=== PATIENT | male | born 1940 | race Caucasian/White ===

== ENCOUNTER 2019-01-03 13:16 | Inpatient (IN) ==
[2019-01-03] MEDS ORDERED: SODIUM CHLORIDE 0.9% 1,000 ML IV STA (13:33)
[2019-01-03] MEDS ORDERED: NOREPINEPHRINE 4 MG/4 ML VIAL IV ONE (13:39)
[2019-01-03] MEDS ORDERED: fentaNYL 100 MCG/2 ML VIAL IV STA (15:04)
[2019-01-03] MEDS: LACTATED RINGERS 1,000 ML IV SCH (15:20)
[2019-01-03] MEDS ORDERED: PROMETHAZINE 25 MG/1 ML VIAL IM PRN (15:27)
[2019-01-03] MEDS: metroNIDAZOLE INJ 500 MG in PREMIX 1 EACH IV SCH ×2 (16:17→20:35)
[2019-01-03] MEDS: ceFAZolin 1,000 MG in SYRINGE 1 EACH IV SCH ×2 (16:19→20:42)
[2019-01-03] MEDS: MORPHINE 4 MG/1 ML VIAL IV PRN (16:20)
[2019-01-03] MEDS: POTASSIUM CHLORIDE RIDER 10 MEQ in PREMIX 1 EACH IV SCH ×3 (17:38→20:35)
[2019-01-03] MEDS: VANCOMYCIN 50 MG/ML 60 ML/BOTTLE PO SCH (17:39)
[2019-01-03] MEDS: VANCOMYCIN 500 MG VIAL RECTAL SCH (19:15)
[2019-01-03] MEDS ORDERED: SODIUM CHLORIDE 0.9% 1,000 ML IV ONE (20:48)
[2019-01-03] MEDS: NOREPINEPHRINE 8 MG in SODIUM CHLORIDE 0.9% 242 ML IV PRN (22:57)
[2019-01-04 00:08] LABS: ABG Base Excess -6.6 MMOL/L (-2.5-2.5); ABG HCO3 19.1 MMOL/L (20-26); ABG Oxygen Saturation 98.6 % (95-100); ABG PCO2 30.8 MM HG (35-48); ABG PH 7.366 (7.35-7.45); ABG TCO2 15.5 MMOL/L (23-27); Allen Test Positive
[2019-01-04 00:26] LABS: Albumin 2.3 G/DL (3.4-5.0); Bilirubin,Total 1.2 MG/DL (0.2-1.0); Calcium 7.5 MG/DL (8.5-10.1); Osmolality,Calculated 302.4 MOS/KG (273-304); Total Protein 4.5 G/DL (6.4-8.3)
[2019-01-04 00:40] LABS: Basophils % 0.1 % (0.0-0.8); Hematocrit 39.1 VOL% (42.0-52.0); Hemoglobin 12.9 GM/DL (14.0-18.0); Immature Granulocytes % 1.9 %; Immature Granulocytes Absolute 0.36 #; Lymphocytes # 0.3 10*3/uL (1.4-4.0); Lymphocytes % 1.6 % (21.2-54.2); Mean Corpuscular Volume 89.9 FL (87-102); Mean Platelet Volume 12.7 FL (9.6-12.0); Monocytes % 8.2 % (1.7-12.7); Neutrophils % 88.2 % (38.7-73.9); Platelet Count 133 T/CUMM (130-400); Red Blood Count 4.35 MC/CUMM (3.8-5.5); Red Cell Distribution Width 13.9 % (9.3-17.3); White Blood Count 18.9 T/CUMM (4-12)
[2019-01-04] MEDS: VANCOMYCIN 50 MG/ML 60 ML/BOTTLE PO SCH ×4 (00:46→18:59)
[2019-01-04] MEDS: VANCOMYCIN 500 MG VIAL RECTAL SCH ×3 (00:46→13:58)
[2019-01-04 01:08] LABS: Band Neutrophils 8 % (0-10); Lymphocytes 2 % (20-55); Metamyelocytes 10 %; Myelocytes 8 %; Segmented Neutrophils 63 % (50-85); Total Cells Counted 100
[2019-01-04 01:10] LABS: Ovalocytes 1+; Platelet Estimate Normal
[2019-01-04 01:11] LABS: CKMB % 2.1 %
[2019-01-04 01:23] LABS: Troponin I 2.46 NG/ML (0.00-0.045)
[2019-01-04] MEDS ORDERED: SODIUM CHLORIDE 0.9% 1,000 ML IV ONE (01:59)
[2019-01-04] MEDS: POTASSIUM CHLORIDE RIDER 10 MEQ in PREMIX 1 EACH IV PRN (02:14)
[2019-01-04] MEDS: ceFAZolin 1,000 MG in SYRINGE 1 EACH IV SCH ×4 (03:20→21:01)
[2019-01-04] MEDS: metroNIDAZOLE INJ 500 MG in PREMIX 1 EACH IV SCH ×4 (03:27→21:02)
[2019-01-04 04:47] LABS: Basophils # 0.1 10*3/uL (0.0-0.2); Basophils % 0.2 % (0.0-0.8); Hematocrit 39.6 VOL% (42.0-52.0); Hemoglobin 12.9 GM/DL (14.0-18.0); Immature Granulocytes % 1.4 %; Immature Granulocytes Absolute 0.35 #; Lymphocytes # 0.4 10*3/uL (1.4-4.0); Lymphocytes % 1.5 % (21.2-54.2); Mean Corpuscular HGB Conc 32.6 GM/DL (32-36); Mean Corpuscular Volume 89.4 FL (87-102); Mean Platelet Volume 12.3 FL (9.6-12.0); Monocytes % 8.4 % (1.7-12.7); Neutrophils % 88.5 % (38.7-73.9); Platelet Count 153 T/CUMM (130-400); Red Blood Count 4.43 MC/CUMM (3.8-5.5); Red Cell Distribution Width 14.1 % (9.3-17.3); White Blood Count 24.4 T/CUMM (4-12)
[2019-01-04 05:21] LABS: Alanine Aminotransferase 36 U/L (16-61); Albumin 2.4 G/DL (3.4-5.0); Alkaline Phosphatase 56 U/L (45-117); Aspartate Amino Transferase 79 U/L (0-37); Blood Urea Nitrogen 44 MG/DL (7-18); Calcium 7.4 MG/DL (8.5-10.1); Estimated Glom Filtration Rate 29 ML/MIN; Glucose 95 MG/DL (74-106); Osmolality,Calculated 300.6 MOS/KG (273-304); Total Protein 4.9 G/DL (6.4-8.3)
[2019-01-04 05:27] LABS: Band Neutrophils 4 % (0-10); Lymphocytes 6 % (20-55); Metamyelocytes 4 %; Myelocytes 5 %; Segmented Neutrophils 67 % (50-85); Total Cells Counted 100
[2019-01-04 05:28] LABS: Hypochromasia 1+; Platelet Estimate Adequate
[2019-01-04] MEDS: LACTATED RINGERS 1,000 ML IV SCH ×3 (06:16→17:57)
[2019-01-04] MEDS: NOREPINEPHRINE 8 MG in SODIUM CHLORIDE 0.9% 242 ML IV PRN (06:17)
[2019-01-05] MEDS: VANCOMYCIN 50 MG/ML 60 ML/BOTTLE PO SCH ×4 (00:04→18:32)
[2019-01-05] MEDS: LACTATED RINGERS 1,000 ML IV SCH ×2 (01:10→12:28)
[2019-01-05] MEDS: ceFAZolin 1,000 MG in SYRINGE 1 EACH IV SCH ×4 (02:39→21:39)
[2019-01-05] MEDS: metroNIDAZOLE INJ 500 MG in PREMIX 1 EACH IV SCH ×4 (02:39→21:39)
[2019-01-05 04:53] LABS: Basophils # 0.1 10*3/uL (0.0-0.2); Basophils % 0.4 % (0.0-0.8); Hemoglobin 12.2 GM/DL (14.0-18.0); Immature Granulocytes % 2.1 %; Immature Granulocytes Absolute 0.35 #; Lymphocytes # 0.3 10*3/uL (1.4-4.0); Lymphocytes % 1.6 % (21.2-54.2); Mean Corpuscular Volume 87.9 FL (87-102); Mean Platelet Volume 12.2 FL (9.6-12.0); Monocytes % 5.8 % (1.7-12.7); Neutrophils % 90.1 % (38.7-73.9); Platelet Count 120 T/CUMM (130-400); Red Blood Count 4.21 MC/CUMM (3.8-5.5); Red Cell Distribution Width 14.4 % (9.3-17.3); White Blood Count 16.6 T/CUMM (4-12)
[2019-01-05 05:40] LABS: Band Neutrophils 20 % (0-10); Lymphocytes 2 % (20-55); Metamyelocytes 17 %; Myelocytes 1 %; Ovalocytes 1+; Platelet Estimate Decreased; Segmented Neutrophils 55 % (50-85); Total Cells Counted 100
[2019-01-05 05:42] LABS: Calcium 7.7 MG/DL (8.5-10.1); Osmolality,Calculated 293.4 MOS/KG (273-304)
[2019-01-05] MEDS: POTASSIUM CHLORIDE RIDER 10 MEQ in PREMIX 1 EACH IV PRN ×2 (06:24→08:21)
[2019-01-05] MEDS ORDERED: LACTATED RINGERS 500 ML IV ONE (06:49)
[2019-01-05 11:49] LABS: Amorphous Crystals,Urine Few /HPF (Few); Apearance,Urine Slightly Hazy (Clear); Bacteria,Urine Occasional /HPF (Few); Bilirubin,Urine Negative (Negative); Blood, Urine Moderate mg/dL (Negative); Glucose,Urine (UA) Negative (Negative); Ketones,Urine Negative (Negative); Mucus,Urine Occasional /LPF (Occasional); Nitrite,Urine Negative (Negative); Protein,Urine Negative; RBC,Urine 16 /HPF (0-4); Squamous Epithelial Cell,Urine Occasional /HPF (0-10); Urine Color Yellow (Yellow); Urine Specific Gravity 1.018 (1.001-1.035); Urine Urobilinogen < 2.0 EU/DL (0.2-1.0); WBC,Urine 21 /HPF (0-6)
[2019-01-05] MEDS: DEXTROSE 5% LACTATED RINGERS 1,000 ML IV SCH ×2 (12:28→22:34)
[2019-01-05] MEDS: ONDANSETRON 4 MG/2 ML VIAL IV PRN (18:01)
[2019-01-05] MEDS: MORPHINE 4 MG/1 ML VIAL IV PRN (21:40)
[2019-01-06] MEDS: VANCOMYCIN 50 MG/ML 60 ML/BOTTLE PO SCH ×4 (00:58→18:35)
[2019-01-06] MEDS: ceFAZolin 1,000 MG in SYRINGE 1 EACH IV SCH (03:21)
[2019-01-06] MEDS: metroNIDAZOLE INJ 500 MG in PREMIX 1 EACH IV SCH ×4 (03:21→20:58)
[2019-01-06] MEDS: MORPHINE 4 MG/1 ML VIAL IV PRN ×2 (03:51→08:55)
[2019-01-06 05:00] LABS: Basophils # 0.1 10*3/uL (0.0-0.2); Basophils % 0.6 % (0.0-0.8); Hemoglobin 12.8 GM/DL (14.0-18.0); Immature Granulocytes % 0.4 %; Lymphocytes # 0.3 10*3/uL (1.4-4.0); Lymphocytes % 1.1 % (21.2-54.2); Mean Corpuscular HGB Conc 33.7 GM/DL (32-36); Mean Corpuscular Volume 86.4 FL (87-102); Mean Platelet Volume 11.6 FL (9.6-12.0); Monocytes % 3.6 % (1.7-12.7); Neutrophils % 94.3 % (38.7-73.9); Platelet Count 123 T/CUMM (130-400); Red Cell Distribution Width 14.2 % (9.3-17.3); White Blood Count 23.5 T/CUMM (4-12)
[2019-01-06 05:21] LABS: Bilirubin,Total 0.9 MG/DL (0.2-1.0); Calcium 8.3 MG/DL (8.5-10.1); Osmolality,Calculated 299.8 MOS/KG (273-304); Total Protein 5.3 G/DL (6.4-8.3)
[2019-01-06 05:29] LABS: Band Neutrophils 2 % (0-10); Hypochromasia 1+; Lymphocytes 1 % (20-55); Metamyelocytes 1 %; Microcytosis Slight; Myelocytes 1 %; Ovalocytes Slight; Segmented Neutrophils 85 % (50-85); Target Cells Slight; Total Cells Counted 100
[2019-01-06 05:30] LABS: Platelet Estimate Adequate
[2019-01-06] MEDS: PIPERACILLIN/TAZOBACTAM 3,375 MG in SODIUM CHLORIDE 0.9% 100 ML IV SCH ×2 (08:56→17:00)
[2019-01-06] MEDS: DEXTROSE 5% LACTATED RINGERS 1,000 ML IV SCH ×2 (08:56→19:00)
[2019-01-06] MEDS: HYDROmorphone 2 MG/1 ML VIAL IV PRN (10:15)
[2019-01-06] MEDS: valACYclovir 500 MG TABLET PO SCH (11:27)
[2019-01-06] MEDS: ASPIRIN EC 81 MG TABLET PO SCH (11:27)
[2019-01-06] MEDS: ONDANSETRON 4 MG/2 ML VIAL IV PRN (11:38)
[2019-01-06] MEDS: FAMOTIDINE 20 MG/2 ML VIAL IV SCH (13:29)
[2019-01-06] MEDS: ENOXAPARIN 40 MG/0.4 ML SYRINGE SUBCUT SCH (13:32)
[2019-01-06] MEDS ORDERED: BISACODYL 10 MG SUPP RECTAL ONE (15:28)
[2019-01-06] MEDS ORDERED: ATORVASTATIN 40 MG TABLET PO SCH (21:00)
[2019-01-07] MEDS: FAMOTIDINE 20 MG/2 ML VIAL IV SCH ×2 (00:45→13:44)
[2019-01-07] MEDS: VANCOMYCIN 50 MG/ML 60 ML/BOTTLE PO SCH ×2 (00:45→07:19)
[2019-01-07] MEDS: PIPERACILLIN/TAZOBACTAM 3,375 MG in SODIUM CHLORIDE 0.9% 100 ML IV SCH ×3 (00:50→18:04)
[2019-01-07] MEDS: HYDROmorphone 2 MG/1 ML VIAL IV PRN ×2 (01:15→20:39)
[2019-01-07 06:36] LABS: Basophils # 0.1 10*3/uL (0.0-0.2); Basophils % 0.4 % (0.0-0.8); Eosinophils # 0.1 10*3/uL (0.0-0.87); Eosinophils % 0.3 % (0.00-10.9); Hematocrit 38.3 VOL% (42.0-52.0); Hemoglobin 12.3 GM/DL (14.0-18.0); Immature Granulocytes % 1.8 %; Immature Granulocytes Absolute 0.31 #; Lymphocytes # 0.5 10*3/uL (1.4-4.0); Lymphocytes % 2.9 % (21.2-54.2); Mean Corpuscular HGB Conc 32.1 GM/DL (32-36); Mean Corpuscular Volume 88.5 FL (87-102); Mean Platelet Volume 11.7 FL (9.6-12.0); Neutrophils % 86.6 % (38.7-73.9); Platelet Count 117 T/CUMM (130-400); Red Blood Count 4.33 MC/CUMM (3.8-5.5); Red Cell Distribution Width 14.7 % (9.3-17.3); White Blood Count 17.3 T/CUMM (4-12)
[2019-01-07 06:57] LABS: Osmolality,Calculated 294.1 MOS/KG (273-304)
[2019-01-07 07:03] LABS: Band Neutrophils 5 % (0-10); Hypochromasia 1+; Lymphocytes 9 % (20-55); Microcytosis 1+; Segmented Neutrophils 82 % (50-85); Total Cells Counted 100
[2019-01-07 07:04] LABS: Ovalocytes Slight; Platelet Estimate Adequate
[2019-01-07] MEDS: metroNIDAZOLE INJ 500 MG in PREMIX 1 EACH IV SCH ×4 (07:19→20:38)
[2019-01-07] MEDS: DEXTROSE 5% LACTATED RINGERS 1,000 ML IV SCH (07:20)
[2019-01-07] MEDS: ONDANSETRON 4 MG/2 ML VIAL IV PRN (09:22)
[2019-01-07] MEDS: ASPIRIN EC 81 MG TABLET PO SCH (09:22)
[2019-01-07] MEDS: valACYclovir 500 MG TABLET PO SCH ×2 (09:22→09:39)
[2019-01-07] MEDS: ENOXAPARIN 40 MG/0.4 ML SYRINGE SUBCUT SCH (13:45)
[2019-01-08] MEDS: FAMOTIDINE 20 MG/2 ML VIAL IV SCH ×2 (00:47→13:28)
[2019-01-08] MEDS: PIPERACILLIN/TAZOBACTAM 3,375 MG in SODIUM CHLORIDE 0.9% 100 ML IV SCH ×3 (00:48→16:47)
[2019-01-08] MEDS: metroNIDAZOLE INJ 500 MG in PREMIX 1 EACH IV SCH ×4 (04:05→21:17)
[2019-01-08 05:28] LABS: Basophils % 0.3 % (0.0-0.8); Eosinophils # 0.1 10*3/uL (0.0-0.87); Eosinophils % 1.2 % (0.00-10.9); Hematocrit 36.1 VOL% (42.0-52.0); Hemoglobin 11.7 GM/DL (14.0-18.0); Immature Granulocytes % 1.1 %; Immature Granulocytes Absolute 0.12 #; Lymphocytes % 8.7 % (21.2-54.2); Mean Corpuscular HGB Conc 32.4 GM/DL (32-36); Mean Corpuscular Volume 89.4 FL (87-102); Mean Platelet Volume 11.7 FL (9.6-12.0); Monocytes % 12.4 % (1.7-12.7); Neutrophils % 76.3 % (38.7-73.9); Platelet Count 125 T/CUMM (130-400); Red Blood Count 4.04 MC/CUMM (3.8-5.5); Red Cell Distribution Width 14.7 % (9.3-17.3)
[2019-01-08 05:56] LABS: Calcium 7.8 MG/DL (8.5-10.1); Osmolality,Calculated 300.4 MOS/KG (273-304)
[2019-01-08 06:03] LABS: Band Neutrophils 3 % (0-10); Hypochromasia 1+; Lymphocytes 12 % (20-55); Microcytosis 1+; Platelet Estimate Decreased; Segmented Neutrophils 72 % (50-85); Total Cells Counted 100
[2019-01-08] MEDS ORDERED: MAGNESIUM SULF INJ 3 GM in SODIUM CHLORIDE 0.9% 100 ML IV ONE (09:00)
[2019-01-08] MEDS: DEXTROSE 5% LACTATED RINGERS 1,000 ML IV SCH ×2 (09:18→09:19)
[2019-01-08] MEDS: DEXT 5% LACT RING KCL 20 MEQ 20 MEQ/1,000 ML BAG IV SCH (10:19)
[2019-01-08] MEDS: ENOXAPARIN 40 MG/0.4 ML SYRINGE SUBCUT SCH (13:29)
[2019-01-09] MEDS: PIPERACILLIN/TAZOBACTAM 3,375 MG in SODIUM CHLORIDE 0.9% 100 ML IV SCH ×3 (00:28→16:10)
[2019-01-09] MEDS: ONDANSETRON 4 MG/2 ML VIAL IV PRN (00:28)
[2019-01-09] MEDS: FAMOTIDINE 20 MG/2 ML VIAL IV SCH ×2 (00:31→13:02)
[2019-01-09] MEDS: metroNIDAZOLE INJ 500 MG in PREMIX 1 EACH IV SCH ×4 (03:51→21:38)
[2019-01-09 05:39] LABS: Basophils % 0.3 % (0.0-0.8); Eosinophils # 0.1 10*3/uL (0.0-0.87); Eosinophils % 0.8 % (0.00-10.9); Hematocrit 35.4 VOL% (42.0-52.0); Hemoglobin 11.3 GM/DL (14.0-18.0); Immature Granulocytes % 1.6 %; Immature Granulocytes Absolute 0.19 #; Lymphocytes # 1.1 10*3/uL (1.4-4.0); Lymphocytes % 8.9 % (21.2-54.2); Mean Corpuscular HGB Conc 31.9 GM/DL (32-36); Mean Corpuscular Volume 89.2 FL (87-102); Mean Platelet Volume 11.1 FL (9.6-12.0); Monocytes % 12.7 % (1.7-12.7); Neutrophils % 75.7 % (38.7-73.9); Platelet Count 147 T/CUMM (130-400); Red Blood Count 3.97 MC/CUMM (3.8-5.5); Red Cell Distribution Width 14.6 % (9.3-17.3); White Blood Count 11.9 T/CUMM (4-12)
[2019-01-09 06:00] LABS: Calcium 7.5 MG/DL (8.5-10.1)
[2019-01-09 06:12] LABS: Band Neutrophils 1 % (0-10); Hypochromasia 1+; Lymphocytes 8 % (20-55); Ovalocytes Slight; Segmented Neutrophils 87 % (50-85); Total Cells Counted 100
[2019-01-09 06:13] LABS: Microcytosis 1+; Platelet Estimate Normal
[2019-01-09] MEDS: DEXT 5% LACT RING KCL 20 MEQ 20 MEQ/1,000 ML BAG IV SCH ×4 (08:42→19:33)
[2019-01-09] MEDS: ENOXAPARIN 40 MG/0.4 ML SYRINGE SUBCUT SCH (13:03)
[2019-01-10] MEDS: PIPERACILLIN/TAZOBACTAM 3,375 MG in SODIUM CHLORIDE 0.9% 100 ML IV SCH ×3 (00:03→16:42)
[2019-01-10] MEDS: FAMOTIDINE 20 MG/2 ML VIAL IV SCH ×3 (00:03→21:22)
[2019-01-10] MEDS: metroNIDAZOLE INJ 500 MG in PREMIX 1 EACH IV SCH ×2 (04:21→09:27)
[2019-01-10 05:40] LABS: Basophils % 0.2 % (0.0-0.8); Eosinophils # 0.2 10*3/uL (0.0-0.87); Eosinophils % 1.8 % (0.00-10.9); Hematocrit 32.4 VOL% (42.0-52.0); Hemoglobin 10.5 GM/DL (14.0-18.0); Immature Granulocytes % 1.2 %; Immature Granulocytes Absolute 0.13 #; Lymphocytes # 1.2 10*3/uL (1.4-4.0); Lymphocytes % 10.9 % (21.2-54.2); Mean Corpuscular HGB Conc 32.4 GM/DL (32-36); Mean Corpuscular Volume 90.3 FL (87-102); Mean Platelet Volume 10.6 FL (9.6-12.0); Monocytes % 11.5 % (1.7-12.7); Neutrophils % 74.4 % (38.7-73.9); Platelet Count 148 T/CUMM (130-400); Red Blood Count 3.59 MC/CUMM (3.8-5.5); Red Cell Distribution Width 14.5 % (9.3-17.3); White Blood Count 10.7 T/CUMM (4-12)
[2019-01-10 06:04] LABS: Anisocytosis 1+; Band Neutrophils 13 % (0-10); Eosinophils 5 % (0-10); Lymphocytes 12 % (20-55); Platelet Estimate Adequate; Segmented Neutrophils 63 % (50-85); Total Cells Counted 100
[2019-01-10 06:06] LABS: Calcium 7.5 MG/DL (8.5-10.1); Osmolality,Calculated 305.7 MOS/KG (273-304)
[2019-01-10] MEDS ORDERED: DEXT 5% NACL 0.45% KCL 20 MEQ 20 MEQ/1,000 ML BAG IV SCH (09:00)
[2019-01-10] MEDS: ENOXAPARIN 40 MG/0.4 ML SYRINGE SUBCUT SCH (11:12)
[2019-01-10] MEDS ORDERED: SIMETHICONE CHEW 125 MG TABLET PO PRN (13:03)
[2019-01-10 13:19] LABS: Calcium 7.3 MG/DL (8.5-10.1); Osmolality,Calculated 296.6 MOS/KG (273-304)
[2019-01-10] MEDS ORDERED: MAGNESIUM SULF RIDER 4 GM in PREMIX 1 EACH IV PRN (13:37)
[2019-01-10] MEDS ORDERED: SIMETHICONE CHEW 125 MG TABLET PO ONE (14:00)
[2019-01-10] MEDS: DEXTROSE 5% 1,000 ML IV SCH (16:42)
[2019-01-10] MEDS: DEXT 5% LACT RING KCL 20 MEQ 20 MEQ/1,000 ML BAG IV SCH (21:40)
[2019-01-11] MEDS: PIPERACILLIN/TAZOBACTAM 3,375 MG in SODIUM CHLORIDE 0.9% 100 ML IV SCH ×3 (02:23→15:51)
[2019-01-11 04:32] LABS: Basophils % 0.2 % (0.0-0.8); Eosinophils # 0.2 10*3/uL (0.0-0.87); Eosinophils % 2.1 % (0.00-10.9); Hemoglobin 10.4 GM/DL (14.0-18.0); Immature Granulocytes % 1.1 %; Immature Granulocytes Absolute 0.11 #; Lymphocytes # 1.3 10*3/uL (1.4-4.0); Lymphocytes % 12.9 % (21.2-54.2); Mean Corpuscular HGB Conc 32.5 GM/DL (32-36); Mean Corpuscular Volume 89.1 FL (87-102); Mean Platelet Volume 11.1 FL (9.6-12.0); Monocytes % 10.6 % (1.7-12.7); Neutrophils % 73.1 % (38.7-73.9); Platelet Count 177 T/CUMM (130-400); Red Blood Count 3.59 MC/CUMM (3.8-5.5); Red Cell Distribution Width 14.4 % (9.3-17.3)
[2019-01-11 04:59] LABS: Calcium 7.2 MG/DL (8.5-10.1); Osmolality,Calculated 296.3 MOS/KG (273-304)
[2019-01-11] MEDS: LISINOPRIL/HCTZ 20-12.5 MG TABLET PO SCH (09:09)
[2019-01-11] MEDS: FAMOTIDINE 20 MG/2 ML VIAL IV SCH ×2 (09:10→21:49)
[2019-01-11] MEDS: MAGNESIUM SULF RIDER 2 GM in PREMIX 1 EACH IV PRN (09:10)
[2019-01-11] MEDS: ENOXAPARIN 40 MG/0.4 ML SYRINGE SUBCUT SCH (09:10)
[2019-01-11] MEDS: POTASSIUM CHLORIDE 20 MEQ TABLET PO PRN ×3 (15:49→21:17)
[2019-01-11] MEDS ORDERED: SIMETHICONE CHEW 125 MG TABLET PO ONE (17:00)
[2019-01-12] MEDS: DEXTROSE 5% 1,000 ML IV SCH (00:15)
[2019-01-12] MEDS: PIPERACILLIN/TAZOBACTAM 3,375 MG in SODIUM CHLORIDE 0.9% 100 ML IV SCH ×2 (00:48→09:38)
[2019-01-12] MEDS: HYDROmorphone 2 MG/1 ML VIAL IV PRN (03:35)
[2019-01-12 03:57] LABS: Basophils % 0.2 % (0.0-0.8); Eosinophils # 0.1 10*3/uL (0.0-0.87); Eosinophils % 1.5 % (0.00-10.9); Hematocrit 31.9 VOL% (42.0-52.0); Hemoglobin 10.5 GM/DL (14.0-18.0); Immature Granulocytes Absolute 0.09 #; Lymphocytes # 1.1 10*3/uL (1.4-4.0); Lymphocytes % 11.6 % (21.2-54.2); Mean Corpuscular HGB Conc 32.9 GM/DL (32-36); Mean Corpuscular Volume 88.1 FL (87-102); Mean Platelet Volume 10.8 FL (9.6-12.0); Monocytes % 11.2 % (1.7-12.7); Neutrophils % 74.5 % (38.7-73.9); Platelet Count 203 T/CUMM (130-400); Red Blood Count 3.62 MC/CUMM (3.8-5.5); Red Cell Distribution Width 13.8 % (9.3-17.3); White Blood Count 9.2 T/CUMM (4-12)
[2019-01-12 04:27] LABS: Calcium 7.3 MG/DL (8.5-10.1); Osmolality,Calculated 280.4 MOS/KG (273-304)
[2019-01-12] MEDS: FAMOTIDINE 20 MG/2 ML VIAL IV SCH ×2 (09:38→21:18)
[2019-01-12] MEDS: ENOXAPARIN 40 MG/0.4 ML SYRINGE SUBCUT SCH (09:38)
[2019-01-12] MEDS: LISINOPRIL/HCTZ 20-12.5 MG TABLET PO SCH (09:38)
[2019-01-12] MEDS: CHOLESTYRAMINE 4 GM PACK PO SCH ×2 (11:53→21:18)
[2019-01-12] MEDS: MAGNESIUM OXIDE 400 MG TABLET PO SCH ×2 (11:53→21:18)
[2019-01-12] MEDS: CALCIUM CARBONATE CHEW 500 MG TABLET PO SCH ×2 (11:53→21:18)
[2019-01-12] MEDS: LACTOBACILLUS ACIDOPHILUS/BULGARICUS 1 PACKET PO SCH ×2 (16:49→21:18)
[2019-01-13 05:52] LABS: Basophils % 0.3 % (0.0-0.8); Eosinophils # 0.1 10*3/uL (0.0-0.87); Eosinophils % 1.4 % (0.00-10.9); Hematocrit 32.2 VOL% (42.0-52.0); Hemoglobin 10.7 GM/DL (14.0-18.0); Immature Granulocytes % 0.8 %; Immature Granulocytes Absolute 0.06 #; Lymphocytes % 12.5 % (21.2-54.2); Mean Corpuscular HGB Conc 33.2 GM/DL (32-36); Monocytes % 15.7 % (1.7-12.7); Neutrophils % 69.3 % (38.7-73.9); Platelet Count 236 T/CUMM (130-400); Red Blood Count 3.66 MC/CUMM (3.8-5.5); Red Cell Distribution Width 13.8 % (9.3-17.3); White Blood Count 7.7 T/CUMM (4-12)
[2019-01-13 06:23] LABS: Albumin 1.6 G/DL (3.4-5.0); Bilirubin,Total 0.8 MG/DL (0.2-1.0); Calcium 7.5 MG/DL (8.5-10.1); Osmolality,Calculated 274.7 MOS/KG (273-304); Total Protein 4.8 G/DL (6.4-8.3)
[2019-01-13 06:31] LABS: Band Neutrophils 3 % (0-10); Eosinophils 1 % (0-10); Hypochromasia 1+; Lymphocytes 9 % (20-55); Ovalocytes Slight; Platelet Estimate Adequate; Segmented Neutrophils 72 % (50-85); Total Cells Counted 100
[2019-01-13] MEDS ORDERED: LOPERAMIDE 2 MG CAPSULE PO SCH (09:00)
[2019-01-13] MEDS: FAMOTIDINE 20 MG/2 ML VIAL IV SCH (10:51)
[2019-01-13] MEDS: CIPROFLOXACIN 500 MG TABLET PO SCH (10:52)
[2019-01-13] MEDS: metroNIDAZOLE 500 MG TABLET PO SCH (10:52)
[2019-01-13] MEDS: LACTOBACILLUS ACIDOPHILUS/BULGARICUS 1 PACKET PO SCH ×3 (10:52→20:24)
[2019-01-13] MEDS: MAGNESIUM OXIDE 400 MG TABLET PO SCH (10:52)
[2019-01-13] MEDS: CHOLESTYRAMINE 4 GM PACK PO SCH (10:53)
[2019-01-13] MEDS: LISINOPRIL/HCTZ 20-12.5 MG TABLET PO SCH (10:53)
[2019-01-13] MEDS: CALCIUM CARBONATE CHEW 500 MG TABLET PO SCH (10:53)
[2019-01-13] MEDS: ENOXAPARIN 40 MG/0.4 ML SYRINGE SUBCUT SCH (10:54)
[2019-01-13] MEDS ORDERED: chlorproMAZINE 25 MG TABLET PO ONE (13:41)
[2019-01-13] MEDS ORDERED: ALBUMIN 25% 25 GM in PREMIX 1 EACH IV ONE (18:00)
[2019-01-14 04:50] LABS: Basophils % 0.5 % (0.0-0.8); Eosinophils % 0.6 % (0.00-10.9); Hematocrit 32.6 VOL% (42.0-52.0); Hemoglobin 10.8 GM/DL (14.0-18.0); Immature Granulocytes % 0.5 %; Immature Granulocytes Absolute 0.03 #; Lymphocytes # 0.9 10*3/uL (1.4-4.0); Lymphocytes % 14.2 % (21.2-54.2); Mean Corpuscular HGB Conc 33.1 GM/DL (32-36); Mean Corpuscular Volume 88.3 FL (87-102); Mean Platelet Volume 11.1 FL (9.6-12.0); Neutrophils % 64.2 % (38.7-73.9); Platelet Count 256 T/CUMM (130-400); Red Blood Count 3.69 MC/CUMM (3.8-5.5); Red Cell Distribution Width 13.7 % (9.3-17.3); White Blood Count 6.6 T/CUMM (4-12)
[2019-01-14 05:20] LABS: Band Neutrophils 4 % (0-10); Hypochromasia 1+; Lymphocytes 17 % (20-55); Platelet Estimate Adequate; Segmented Neutrophils 60 % (50-85); Total Cells Counted 100
[2019-01-14 05:22] LABS: Bilirubin,Total 1.6 MG/DL (0.2-1.0); Calcium 7.7 MG/DL (8.5-10.1); Osmolality,Calculated 276.5 MOS/KG (273-304); Total Protein 5.2 G/DL (6.4-8.3)
[2019-01-14] MEDS: ENOXAPARIN 40 MG/0.4 ML SYRINGE SUBCUT SCH (09:37)
[2019-01-14] MEDS: FAMOTIDINE 20 MG/2 ML VIAL IV SCH ×2 (09:37→21:12)
[2019-01-14] MEDS: MAGNESIUM SULF RIDER 2 GM in PREMIX 1 EACH IV PRN (09:38)
[2019-01-14] MEDS: POTASSIUM CHLORIDE RIDER 10 MEQ in PREMIX 1 EACH IV PRN ×3 (13:32→16:47)
[2019-01-14] MEDS: CIPROFLOXACIN 500 MG TABLET PO SCH ×2 (13:32→21:12)
[2019-01-14] MEDS: ASPIRIN EC 81 MG TABLET PO SCH (13:32)
[2019-01-14] MEDS: LACTOBACILLUS ACIDOPHILUS/BULGARICUS 1 PACKET PO SCH ×3 (13:45→21:12)
[2019-01-14] MEDS: metroNIDAZOLE 500 MG TABLET PO SCH ×3 (14:16→21:12)
[2019-01-14] MEDS: LISINOPRIL/HCTZ 20-12.5 MG TABLET PO SCH (14:16)
[2019-01-14] MEDS ORDERED: BISACODYL 5 MG TABLET PO ONE (15:30)
[2019-01-14] MEDS ORDERED: TUBERCULIN SKIN TEST 0.1 ML SYRINGE INTRADERM ONE (16:00)
[2019-01-14] MEDS ORDERED: POLYETHYLENE GLYCOL POWDER 255 GM BOTTLE PO ONE (18:00)
[2019-01-15] MEDS ORDERED: MAGNESIUM CITRATE 300 ML BOTTLE PO ONE (06:00)
[2019-01-15 06:16] LABS: Basophils % 0.5 % (0.0-0.8); Eosinophils # 0.1 10*3/uL (0.0-0.87); Eosinophils % 0.7 % (0.00-10.9); Hematocrit 31.5 VOL% (42.0-52.0); Hemoglobin 10.3 GM/DL (14.0-18.0); Immature Granulocytes % 1.2 %; Lymphocytes # 1.1 10*3/uL (1.4-4.0); Lymphocytes % 13.2 % (21.2-54.2); Mean Corpuscular HGB Conc 32.7 GM/DL (32-36); Mean Corpuscular Volume 89.2 FL (87-102); Mean Platelet Volume 11.2 FL (9.6-12.0); Monocytes % 21.9 % (1.7-12.7); Neutrophils % 62.5 % (38.7-73.9); Platelet Count 294 T/CUMM (130-400); Red Blood Count 3.53 MC/CUMM (3.8-5.5); White Blood Count 8.1 T/CUMM (4-12)
[2019-01-15 06:20] LABS: INR 1.4; PT Patient Result 14.7 SECS (9.6-12.2)
[2019-01-15 06:39] LABS: Albumin 1.7 G/DL (3.4-5.0); Calcium 7.7 MG/DL (8.5-10.1); Osmolality,Calculated 280.5 MOS/KG (273-304); Total Protein 5.1 G/DL (6.4-8.3)
[2019-01-15 06:47] LABS: Band Neutrophils 41 % (0-10); Eosinophils 3 % (0-10); Lymphocytes 18 % (20-55); Platelet Estimate Normal; Segmented Neutrophils 22 % (50-85); Total Cells Counted 100
[2019-01-15 06:48] LABS: Anisocytosis 1+; Macrocytosis 1+; Smudge Cells Few
[2019-01-15] MEDS: POTASSIUM CHLORIDE RIDER 10 MEQ in PREMIX 1 EACH IV PRN ×6 (07:38→23:11)
[2019-01-15] MEDS ORDERED: LACTATED RINGERS 1,000 ML IV SCH (08:00)
[2019-01-15] MEDS: FAMOTIDINE 20 MG/2 ML VIAL IV SCH ×2 (08:25→20:52)
[2019-01-15] MEDS: LISINOPRIL/HCTZ 20-12.5 MG TABLET PO SCH (09:39)
[2019-01-15] MEDS: metroNIDAZOLE 500 MG TABLET PO SCH ×3 (09:39→20:51)
[2019-01-15] MEDS: ASPIRIN EC 81 MG TABLET PO SCH (09:39)
[2019-01-15] MEDS: CIPROFLOXACIN 500 MG TABLET PO SCH ×2 (09:39→20:51)
[2019-01-15] MEDS: LACTOBACILLUS ACIDOPHILUS/BULGARICUS 1 PACKET PO SCH ×3 (09:39→20:52)
[2019-01-15] MEDS ORDERED: POLYETHYLENE GLYCOL POWDER 255 GM BOTTLE PO ONE (13:00)
[2019-01-16] MEDS: POTASSIUM CHLORIDE RIDER 10 MEQ in PREMIX 1 EACH IV PRN ×6 (00:20→15:17)
[2019-01-16 04:54] LABS: Basophils % 0.6 % (0.0-0.8); Eosinophils # 0.1 10*3/uL (0.0-0.87); Eosinophils % 1.3 % (0.00-10.9); Hematocrit 31.6 VOL% (42.0-52.0); Hemoglobin 10.2 GM/DL (14.0-18.0); Immature Granulocytes Absolute 0.07 #; Lymphocytes # 0.7 10*3/uL (1.4-4.0); Lymphocytes % 10.6 % (21.2-54.2); Mean Corpuscular HGB Conc 32.3 GM/DL (32-36); Mean Corpuscular Volume 89.8 FL (87-102); Mean Platelet Volume 11.1 FL (9.6-12.0); Neutrophils % 62.5 % (38.7-73.9); Platelet Count 315 T/CUMM (130-400); Red Blood Count 3.52 MC/CUMM (3.8-5.5)
[2019-01-16 05:01] LABS: INR 1.4; PT Patient Result 14.7 SECS (9.6-12.2)
[2019-01-16 05:20] LABS: Hypochromasia 1+; Macrocytosis Slight; Platelet Estimate Adequate
[2019-01-16 05:21] LABS: Calcium 7.4 MG/DL (8.5-10.1); Osmolality,Calculated 277.7 MOS/KG (273-304)
[2019-01-16] MEDS ORDERED: MAGNESIUM CITRATE 300 ML BOTTLE PO ONE (06:00)
[2019-01-16] MEDS: FAMOTIDINE 20 MG/2 ML VIAL IV SCH ×2 (08:57→20:53)
[2019-01-16] MEDS: ASPIRIN EC 81 MG TABLET PO SCH (09:24)
[2019-01-16] MEDS: CIPROFLOXACIN 500 MG TABLET PO SCH (09:24)
[2019-01-16] MEDS: metroNIDAZOLE 500 MG TABLET PO SCH (09:25)
[2019-01-16] MEDS: LACTOBACILLUS ACIDOPHILUS/BULGARICUS 1 PACKET PO SCH ×3 (09:25→20:52)
[2019-01-16] MEDS: LISINOPRIL/HCTZ 20-12.5 MG TABLET PO SCH (09:25)
[2019-01-16] MEDS ORDERED: ETOMIDATE 20 MG/10 ML VIAL IV ONE (10:00)
[2019-01-16] MEDS ORDERED: LIDOCAINE 2% 5 ML VIAL ONE (10:00)
[2019-01-16] MEDS ORDERED: PROPOFOL 200 MG/20 ML VIAL IV ONE (10:00)
[2019-01-16] MEDS: VANCOMYCIN 50 MG/ML 60 ML/BOTTLE PO SCH ×2 (18:07→20:52)
[2019-01-16] MEDS: CALCIUM CARBONATE CHEW 500 MG TABLET PO SCH (20:52)
[2019-01-16] MEDS: POTASSIUM CHLORIDE 20 MEQ TABLET PO PRN ×2 (20:52→22:59)
[2019-01-17] MEDS: POTASSIUM CHLORIDE 20 MEQ TABLET PO PRN ×4 (01:15→14:37)
[2019-01-17 06:18] LABS: Basophils % 0.6 % (0.0-0.8); Eosinophils # 0.1 10*3/uL (0.0-0.87); Eosinophils % 1.1 % (0.00-10.9); Hematocrit 30.5 VOL% (42.0-52.0); Hemoglobin 9.9 GM/DL (14.0-18.0); Immature Granulocytes % 2.1 %; Immature Granulocytes Absolute 0.11 #; Lymphocytes # 0.7 10*3/uL (1.4-4.0); Lymphocytes % 12.8 % (21.2-54.2); Mean Corpuscular HGB Conc 32.5 GM/DL (32-36); Mean Corpuscular Volume 88.4 FL (87-102); Monocytes % 25.3 % (1.7-12.7); Neutrophils % 58.1 % (38.7-73.9); Platelet Count 288 T/CUMM (130-400); Red Blood Count 3.45 MC/CUMM (3.8-5.5); Red Cell Distribution Width 14.1 % (9.3-17.3); White Blood Count 5.3 T/CUMM (4-12)
[2019-01-17 06:44] LABS: Calcium 7.5 MG/DL (8.5-10.1)
[2019-01-17 07:08] LABS: Band Neutrophils 1 % (0-10); Hypochromasia 1+; Lymphocytes 11 % (20-55); Microcytosis 1+; Platelet Estimate Adequate; Segmented Neutrophils 68 % (50-85); Total Cells Counted 100
[2019-01-17] MEDS: VANCOMYCIN 50 MG/ML 60 ML/BOTTLE PO SCH ×4 (08:29→21:45)
[2019-01-17] MEDS: CALCIUM CARBONATE CHEW 500 MG TABLET PO SCH ×2 (08:29→21:44)
[2019-01-17] MEDS: FAMOTIDINE 20 MG/2 ML VIAL IV SCH ×2 (08:29→21:45)
[2019-01-17] MEDS: LACTOBACILLUS ACIDOPHILUS/BULGARICUS 1 PACKET PO SCH ×3 (08:30→21:44)
[2019-01-17] MEDS: LISINOPRIL/HCTZ 20-12.5 MG TABLET PO SCH (08:30)
[2019-01-17] MEDS: ASPIRIN EC 81 MG TABLET PO SCH (08:30)
[2019-01-17] MEDS: metroNIDAZOLE INJ 500 MG in PREMIX 1 EACH IV SCH ×3 (10:28→21:45)
[2019-01-17] MEDS: ACETAMINOPHEN 325 MG TABLET PO PRN ×2 (16:42→21:44)
[2019-01-18] MEDS: metroNIDAZOLE INJ 500 MG in PREMIX 1 EACH IV SCH ×4 (03:26→20:50)
[2019-01-18] MEDS: VANCOMYCIN 50 MG/ML 60 ML/BOTTLE PO SCH ×4 (09:00→20:49)
[2019-01-18] MEDS: FAMOTIDINE 20 MG/2 ML VIAL IV SCH ×2 (09:00→20:50)
[2019-01-18] MEDS: LACTOBACILLUS ACIDOPHILUS/BULGARICUS 1 PACKET PO SCH ×3 (09:00→20:49)
[2019-01-18] MEDS: ASPIRIN EC 81 MG TABLET PO SCH (09:00)
[2019-01-18] MEDS: LISINOPRIL/HCTZ 20-12.5 MG TABLET PO SCH (09:11)
[2019-01-18] MEDS: CALCIUM CARBONATE CHEW 500 MG TABLET PO SCH ×2 (09:11→20:49)
[2019-01-18] MEDS: ACETAMINOPHEN 325 MG TABLET PO PRN (09:13)
[2019-01-18] MEDS ORDERED: KETOROLAC 60 MG/2 ML VIAL IM ONE (12:15)
[2019-01-18] MEDS ORDERED: KETOROLAC 30 MG/1 ML VIAL IM ONE (12:30)
[2019-01-19] MEDS: metroNIDAZOLE INJ 500 MG in PREMIX 1 EACH IV SCH ×4 (02:34→20:42)
[2019-01-19] MEDS: ASPIRIN EC 81 MG TABLET PO SCH (09:32)
[2019-01-19] MEDS: LISINOPRIL/HCTZ 20-12.5 MG TABLET PO SCH (09:32)
[2019-01-19] MEDS: LACTOBACILLUS ACIDOPHILUS/BULGARICUS 1 PACKET PO SCH ×3 (09:32→20:42)
[2019-01-19] MEDS: FAMOTIDINE 20 MG/2 ML VIAL IV SCH ×2 (09:32→20:41)
[2019-01-19] MEDS: VANCOMYCIN 50 MG/ML 60 ML/BOTTLE PO SCH ×4 (09:32→20:41)
[2019-01-19] MEDS: CALCIUM CARBONATE CHEW 500 MG TABLET PO SCH (11:21)
[2019-01-20] MEDS: metroNIDAZOLE INJ 500 MG in PREMIX 1 EACH IV SCH ×4 (03:26→21:25)
[2019-01-20 06:51] LABS: Basophils % 0.5 % (0.0-0.8); Eosinophils # 0.1 10*3/uL (0.0-0.87); Eosinophils % 0.6 % (0.00-10.9); Hematocrit 31.4 VOL% (42.0-52.0); Hemoglobin 10.2 GM/DL (14.0-18.0); Immature Granulocytes % 1.3 %; Immature Granulocytes Absolute 0.11 #; Lymphocytes # 1.1 10*3/uL (1.4-4.0); Lymphocytes % 13.4 % (21.2-54.2); Mean Corpuscular HGB Conc 32.5 GM/DL (32-36); Mean Platelet Volume 10.8 FL (9.6-12.0); Monocytes % 12.6 % (1.7-12.7); Neutrophils % 71.6 % (38.7-73.9); Platelet Count 292 T/CUMM (130-400); Red Blood Count 3.57 MC/CUMM (3.8-5.5); White Blood Count 8.2 T/CUMM (4-12)
[2019-01-20 07:02] LABS: Calcium 7.9 MG/DL (8.5-10.1); Osmolality,Calculated 284.1 MOS/KG (273-304)
[2019-01-20 07:14] LABS: Band Neutrophils 13 % (0-10); Eosinophils 1 % (0-10); Hypochromasia 1+; Lymphocytes 13 % (20-55); Platelet Estimate Adequate; Segmented Neutrophils 60 % (50-85); Total Cells Counted 100
[2019-01-20] MEDS: POTASSIUM CHLORIDE 20 MEQ TABLET PO PRN ×3 (08:47→13:13)
[2019-01-20] MEDS: LISINOPRIL/HCTZ 20-12.5 MG TABLET PO SCH (08:48)
[2019-01-20] MEDS: VANCOMYCIN 50 MG/ML 60 ML/BOTTLE PO SCH ×4 (08:48→21:27)
[2019-01-20] MEDS: LACTOBACILLUS ACIDOPHILUS/BULGARICUS 1 PACKET PO SCH ×3 (08:48→21:22)
[2019-01-20] MEDS: ASPIRIN EC 81 MG TABLET PO SCH (08:48)
[2019-01-20] MEDS: FAMOTIDINE 20 MG/2 ML VIAL IV SCH ×2 (08:49→21:28)
[2019-01-20] MEDS: SIMETHICONE CHEW 125 MG TABLET PO PRN (09:14)
[2019-01-20] MEDS: ACETAMINOPHEN 325 MG TABLET PO PRN (09:14)
[2019-01-21] MEDS: metroNIDAZOLE INJ 500 MG in PREMIX 1 EACH IV SCH ×3 (03:24→16:00)
[2019-01-21 04:58] LABS: Basophils # 0.1 10*3/uL (0.0-0.2); Basophils % 0.8 % (0.0-0.8); Eosinophils # 0.1 10*3/uL (0.0-0.87); Eosinophils % 0.8 % (0.00-10.9); Hematocrit 32.1 VOL% (42.0-52.0); Hemoglobin 10.4 GM/DL (14.0-18.0); Immature Granulocytes % 1.4 %; Immature Granulocytes Absolute 0.13 #; Lymphocytes # 1.2 10*3/uL (1.4-4.0); Lymphocytes % 12.9 % (21.2-54.2); Mean Corpuscular HGB Conc 32.4 GM/DL (32-36); Mean Corpuscular Volume 88.4 FL (87-102); Mean Platelet Volume 11.2 FL (9.6-12.0); Monocytes % 12.4 % (1.7-12.7); Neutrophils % 71.7 % (38.7-73.9); Platelet Count 293 T/CUMM (130-400); Red Blood Count 3.63 MC/CUMM (3.8-5.5); Red Cell Distribution Width 14.1 % (9.3-17.3); White Blood Count 9.3 T/CUMM (4-12)
[2019-01-21 05:25] LABS: Calcium 7.8 MG/DL (8.5-10.1); Osmolality,Calculated 282.3 MOS/KG (273-304)
[2019-01-21 06:27] LABS: Band Neutrophils 31 % (0-10); Eosinophils 2 % (0-10); Lymphocytes 13 % (20-55); Metamyelocytes 5 %; Myelocytes 1 %; Platelet Estimate Normal; Segmented Neutrophils 34 % (50-85); Total Cells Counted 100
[2019-01-21 06:28] LABS: Hypochromasia 2+
[2019-01-21] MEDS: LISINOPRIL/HCTZ 20-12.5 MG TABLET PO SCH (09:39)
[2019-01-21] MEDS: LACTOBACILLUS ACIDOPHILUS/BULGARICUS 1 PACKET PO SCH ×2 (09:41→16:01)
[2019-01-21] MEDS: VANCOMYCIN 50 MG/ML 60 ML/BOTTLE PO SCH ×3 (09:41→16:01)
[2019-01-21] MEDS: FAMOTIDINE 20 MG/2 ML VIAL IV SCH (09:44)
[2019-01-21] MEDS: ASPIRIN EC 81 MG TABLET PO SCH (09:55)
[2019-01-21] MEDS: SIMETHICONE CHEW 125 MG TABLET PO PRN (11:33)
[2019-01-21 16:16] VITALS: BP 124/52
== END 2019-01-21 19:35 | DRG 871 ==
LOC: EDBD → EDUNIT# → N.ED 13:16 → N.EDINP 14:21 → SUATTDRO 14:21 → N.ICU 15:00 → N.2E 01-06 13:02
PROVIDERS: ADMIT Internal Medicine; ATTEND Internal Medicine
PROC: COLONBX (2019-01-16 10:50)